=== PATIENT | male | born 1985 | race Caucasian/White ===

== ENCOUNTER 2021-05-18 09:30 | Emergency (ER) | payer MEDICARE, OTHER ==
[2021-05-18 10:33] LABS: BASOPHIL 0.8 % (0-2); EOSINOPHIL 3.5 % (0-5); HCT 46.9 % (42.0-52.0); HGB 16.6 g/dl (13.2-18.0); LYMPHOCYTE 13.7 % (15-48); MCH 31.3 pg (25.0-31.0); MCHC 35.4 g/dL (32.0-36.0); MCV 88.3 fL (78.0-100.0); MONOCYTE 10.3 % (0-12); NEUTROPHIL 71.3 % (41-80); NRBC 0; PLT 251 K/uL (150-400); RBC 5.31 M/uL (4.70-6.00); RDW 12.5 % (11.5-14.0); WBC 7.4 K/uL (4.0-10.5)
[2021-05-18 11:15] LABS: LACTIC ACID 1.3 mmol/L (0.4-1.9)
[2021-05-18 11:25] LABS: BILIRUBIN - TOTAL 0.8 mg/dL (0.2-1.0); BUN/CREAT RATIO (CALC) 15.4 RATIO; CREATININE 0.78 mg/dL (0.67-1.17); GLOBULIN (CALCULATION) 3.1 g/dL; POTASSIUM 4.6 mmol/L (3.5-5.1); TOTAL PROTEIN 7.1 g/dL (6.4-8.2)
[2021-05-18] MEDS ORDERED: PREDNISONE 20MG20 MG PO ×2 (13:48→13:50)
[2021-05-18] MEDS ORDERED: DUONEB 2.5-0.5M1 AMP INH ×2 (13:48→13:50)
== END 2021-05-18 14:55 | disposition home or self-care (01) ==
LOC: FER 09:30 → FTCU 10:49 → FER 10:49
PROVIDERS: Emergency Medicine
DX: J45.901 Unspecified asthma with (acute) exacerbation (principal); R91.8 Other nonspecific abnormal finding of lung field; I10 Essential (primary) hypertension; Z20.822 Contact with and (suspected) exposure to COVID-19; Z88.8 Allergy status to other drugs, medicaments and biological substances
CPT/HCPCS: 36415; 71045; 71275; 80053; 83605; 84484; 85025; 85379; 93005; 94640; 94664; Q9967; U0002

== ENCOUNTER 2022-01-16 14:03 | Emergency (ER) | payer MEDICARE, OTHER ==
[~2022-01-16 14:03] MED LIST: DUONEB 2.5-0.5M1 AMP INH; PREDNISONE 20MG20 MG PO
[2022-01-16 14:43] LABS: BASOPHIL 0.7 % (0-2); EOSINOPHIL 2.3 % (0-5); HCT 44.4 % (42.0-52.0); HGB 15.2 g/dl (13.2-18.0); LYMPHOCYTE 14.7 % (15-48); MCH 31.5 pg (25.0-31.0); MCHC 34.2 g/dL (32.0-36.0); MCV 92.1 fL (78.0-100.0); MONOCYTE 8.9 % (0-12); MPV 7.8 fL (6.0-9.5); NEUTROPHIL 72.8 % (41-80); NRBC 0; PLT 280 K/uL (150-400); RBC 4.82 M/uL (4.70-6.00); RDW 13.2 % (11.5-14.0); WBC 11.6 K/uL (4.0-10.5)
[2022-01-16 14:48] LABS: INR 0.94 (0.9-1.2); PTT 25.7 SECONDS (24.4-34.7)
[2022-01-16 14:49] LABS: D-DIMER 0.3 ug/mLFEU (0.00-0.41)
[2022-01-16 14:59] LABS: LACTIC ACID 1.6 mmol/L (0.4-1.9)
[2022-01-16 15:04] LABS: ALBUMIN 3.8 g/dL (3.4-5.0); BILIRUBIN - TOTAL 0.3 mg/dL (0.2-1.0); GLOBULIN (CALCULATION) 3.4 g/dL; MAGNESIUM 2.2 mg/dL (1.8-2.4); POTASSIUM 4.2 mmol/L (3.5-5.1); TOTAL PROTEIN 7.2 g/dL (6.4-8.2)
[2022-01-16 15:54] LABS: CORONAVIRUS 2019 SARS-COV-2 NEGATIVE (NEGATIVE); INFLUENZA A NAA NEGATIVE (NEGATIVE)
== END 2022-01-17 00:45 | disposition other institution (70) ==
LOC: FER 14:03
PROVIDERS: Emergency Medicine
DX: J45.901 Unspecified asthma with (acute) exacerbation (principal); J96.01 Acute respiratory failure with hypoxia; I10 Essential (primary) hypertension; Z88.2 Allergy status to sulfonamides; Z20.822 Contact with and (suspected) exposure to COVID-19
CPT/HCPCS: 36415; 36600; 71045; 80053; 82803; 83605; 83735; 83880; 84145; 84484; 85025; 85379; 85610; 85730; 87040; 93005; 94640; 94664; 94762; J2930; U0002

== ENCOUNTER 2022-01-24 19:21 | Emergency (ER) | payer MEDICARE, OTHER ==
[2022-01-24 20:04] LABS: BASOPHIL 0.4 % (0-2); EOSINOPHIL 0.4 % (0-5); HCT 44.5 % (42.0-52.0); HGB 15.4 g/dl (13.2-18.0); LYMPHOCYTE 16.8 % (15-48); MCH 31.3 pg (25.0-31.0); MCHC 34.6 g/dL (32.0-36.0); MCV 90.4 fL (78.0-100.0); MONOCYTE 9.8 % (0-12); MPV 7.9 fL (6.0-9.5); NEUTROPHIL 70.6 % (41-80); NRBC 0; PLT 285 K/uL (150-400); RBC 4.92 M/uL (4.70-6.00); RDW 12.8 % (11.5-14.0); WBC 13.5 K/uL (4.0-10.5)
[2022-01-24 20:09] LABS: INR 0.93 (0.9-1.2); PROTHROMBIN TIME 11.9 SECONDS (11.8-13.4); PTT 23.5 SECONDS (24.4-34.7)
[2022-01-24 20:18] LABS: ALBUMIN 4.1 g/dL (3.4-5.0); BILIRUBIN - TOTAL 0.3 mg/dL (0.2-1.0); BUN/CREAT RATIO (CALC) 25.9 RATIO; CREATININE 0.85 mg/dL (0.67-1.17); GLOBULIN (CALCULATION) 3.1 g/dL; POTASSIUM 4.3 mmol/L (3.5-5.1); TOTAL PROTEIN 7.2 g/dL (6.4-8.2)
[2022-01-24 21:02] LABS: LACTIC ACID <0.3 mmol/L (0.4-1.9)
[2022-01-24 21:29] LABS: CORONAVIRUS 2019 SARS-COV-2 NEGATIVE (NEGATIVE); INFLUENZA A NAA NEGATIVE (NEGATIVE)
== END 2022-01-24 22:50 | disposition home or self-care (01) ==
LOC: FER 19:21
PROVIDERS: Emergency Medicine
DX: J45.901 Unspecified asthma with (acute) exacerbation (principal); I10 Essential (primary) hypertension; I25.10 Atherosclerotic heart disease of native coronary artery without angina pectoris; Z88.6 Allergy status to analgesic agent; Z20.822 Contact with and (suspected) exposure to COVID-19
CPT/HCPCS: 36415; 80053; 83605; 83880; 84145; 84484; 85025; 85379; 85610; 85730; 87040; 93005; J1940; J2543; J2930; J3370; J7030; J7050; U0002

== ENCOUNTER 2022-02-19 15:15 | Emergency (ER) | payer MEDICARE, OTHER ==
[2022-02-19 16:01] LABS: BASOPHIL 0.8 % (0-2); EOSINOPHIL 2.8 % (0-5); HCT 42.6 % (42.0-52.0); HGB 15.3 g/dl (13.2-18.0); LYMPHOCYTE 22.2 % (15-48); MCH 31.8 pg (25.0-31.0); MCHC 35.9 g/dL (32.0-36.0); MCV 88.6 fL (78.0-100.0); MONOCYTE 12.2 % (0-12); MPV 7.7 fL (6.0-9.5); NEUTROPHIL 61.1 % (41-80); NRBC 0; PLT 195 K/uL (150-400); RBC 4.81 M/uL (4.70-6.00); RDW 13.2 % (11.5-14.0); WBC 6.4 K/uL (4.0-10.5)
[2022-02-19 16:05] LABS: INR 0.96 (0.9-1.2); PROTHROMBIN TIME 12.2 SECONDS (11.8-13.4); PTT 24.7 SECONDS (24.4-34.7)
[2022-02-19 16:22] LABS: CKMB 1.6 ng/mL (0.0-3.6)
[2022-02-19 16:23] LABS: ALBUMIN 4.2 g/dL (3.4-5.0); BILIRUBIN - TOTAL 0.7 mg/dL (0.2-1.0); BUN/CREAT RATIO (CALC) 15.2 RATIO; CREATININE 0.79 mg/dL (0.67-1.17); GLOBULIN (CALCULATION) 3.1 g/dL; POTASSIUM 3.7 mmol/L (3.5-5.1); TOTAL PROTEIN 7.3 g/dL (6.4-8.2)
[2022-02-19 16:29] LABS: LACTIC ACID 1.6 mmol/L (0.4-1.9)
[2022-02-19] MEDS ORDERED: PREDNISONE 20MG20 MG PO (17:28)
== END 2022-02-19 18:06 | disposition home or self-care (01) ==
LOC: FER 15:15
PROVIDERS: Emergency Medicine
DX: J45.901 Unspecified asthma with (acute) exacerbation (principal); J44.9 Chronic obstructive pulmonary disease, unspecified; I10 Essential (primary) hypertension; I48.91 Unspecified atrial fibrillation; Z88.2 Allergy status to sulfonamides; Z20.822 Contact with and (suspected) exposure to COVID-19
CPT/HCPCS: 36415; 36600; 71046; 80053; 82553; 82803; 83605; 83880; 84443; 84484; 85025; 85610; 85730; 93005; J2930; U0002

== ENCOUNTER 2022-03-29 15:03 | Emergency (ER) | payer MEDICARE, OTHER ==
[2022-03-29] MEDS ORDERED: PREDNISONE 20MG20 MG PO (17:23)
== END 2022-03-29 17:33 | disposition home or self-care (01) ==
LOC: FER 15:03
DX: J45.901 Unspecified asthma with (acute) exacerbation (principal); Z88.8 Allergy status to other drugs, medicaments and biological substances; Z79.899 Other long term (current) drug therapy
CPT/HCPCS: 71046; J2930

== ENCOUNTER 2022-04-26 16:47 | Emergency (ER) | payer MEDICARE, OTHER ==
[2022-04-26 18:18] LABS: BASOPHIL 0.5 % (0-2); EOSINOPHIL 0.3 % (0-5); HCT 34.8 % (42.0-52.0); HGB 12.5 g/dl (13.2-18.0); LYMPHOCYTE 14.3 % (15-48); MCH 32.8 pg (25.0-31.0); MCHC 35.9 g/dL (32.0-36.0); MCV 91.3 fL (78.0-100.0); MONOCYTE 8.8 % (0-12); NEUTROPHIL 73.8 % (41-80); NRBC 0.2; PLT 256 K/uL (150-400); RBC 3.81 M/uL (4.70-6.00); RDW 12.8 % (11.5-14.0)
[2022-04-26 18:38] LABS: ALBUMIN 3.8 g/dL (3.4-5.0); BILIRUBIN - TOTAL 0.4 mg/dL (0.2-1.0); BUN/CREAT RATIO (CALC) 14.3 RATIO; CREATININE 1.19 mg/dL (0.67-1.17); GLOBULIN (CALCULATION) 2.9 g/dL; POTASSIUM 3.7 mmol/L (3.5-5.1); TOTAL PROTEIN 6.7 g/dL (6.4-8.2)
== END 2022-04-26 21:24 | disposition home or self-care (01) ==
LOC: FER 16:47
PROVIDERS: Emergency Medicine
DX: R06.02 Shortness of breath (principal); I11.0 Hypertensive heart disease with heart failure; I50.9 Heart failure, unspecified; Z88.1 Allergy status to other antibiotic agents; Z88.8 Allergy status to other drugs, medicaments and biological substances
CPT/HCPCS: 36415; 36600; 71045; 80053; 82803; 84145; 84484; 85025; 93005

== ENCOUNTER 2022-06-04 12:11 | Emergency (ER) | payer MEDICARE, OTHER ==
[2022-06-04 13:13] LABS: BASOPHIL 0.3 % (0-2); EOSINOPHIL 0 % (0-5); HCT 41.1 % (42.0-52.0); HGB 14.6 g/dl (13.2-18.0); LYMPHOCYTE 19.5 % (15-48); MCH 31.9 pg (25.0-31.0); MCHC 35.5 g/dL (32.0-36.0); MCV 89.7 fL (78.0-100.0); MONOCYTE 11.3 % (0-12); MPV 8.3 fL (6.0-9.5); NEUTROPHIL 68.4 % (41-80); NRBC 0; PLT 246 K/uL (150-400); RBC 4.58 M/uL (4.70-6.00); WBC 6.6 K/uL (4.0-10.5)
[2022-06-04 13:18] LABS: INR 1.03 (0.9-1.2); PROTHROMBIN TIME 13.2 SECONDS (11.9-13.9); PTT 25.9 SECONDS (24.9-34.6)
[2022-06-04 13:20] LABS: D-DIMER 0.29 ug/mLFEU (0.00-0.41)
[2022-06-04 13:31] LABS: BUN/CREAT RATIO (CALC) 13.4 RATIO; CREATININE 1.12 mg/dL (0.67-1.17); GLOBULIN (CALCULATION) 2.8 g/dL; POTASSIUM 4.2 mmol/L (3.5-5.1); TOTAL PROTEIN 6.8 g/dL (6.4-8.2)
[2022-06-04] MEDS ORDERED: PROTONIX 40MG T40 MG PO (16:49)
[2022-06-04] MEDS ORDERED: BENTYL10 MG PO (16:49)
[2022-06-04] MEDS ORDERED: NITROGLYCERIN0.4 MG SL (16:59)
== END 2022-06-04 17:13 | disposition home or self-care (01) ==
LOC: FER 12:11
PROVIDERS: Emergency Medicine
DX: K22.4 Dyskinesia of esophagus (principal); K21.9 Gastro-esophageal reflux disease without esophagitis; R07.89 Other chest pain; I50.9 Heart failure, unspecified; Z88.2 Allergy status to sulfonamides; Z88.1 Allergy status to other antibiotic agents; Z88.8 Allergy status to other drugs, medicaments and biological substances; Z88.6 Allergy status to analgesic agent
CPT/HCPCS: 36415; 71045; 71260; 80053; 84484; 85025; 85379; 85610; 85730; 93005; Q9967